=== PATIENT | female | born 1985 | race Caucasian/White ===

== ENCOUNTER 2019-02-22 01:45 | Inpatient (IN) | payer BC ==
[2019-02-22] MEDS ORDERED: Misoprostol 200 MCG Tab PO PRN (01:49)
[2019-02-22] MEDS ORDERED: Methylergonovine 0.2 MG/1 ML Amp IM PRN (01:49)
[2019-02-22] MEDS ORDERED: Tranexamic Acid 1,000 MG in Sodium Chloride 0.9% 100 ML IV PRN (01:49)
[2019-02-22] MEDS ORDERED: Lidocaine 1% 50 ML MDV INJECT PRN (01:49)
[2019-02-22] MEDS ORDERED: Sodium Chloride 0.9% 10 ML Syringe FLUSH PRN (01:49)
[2019-02-22] MEDS ORDERED: Sodium Chloride 0.9% 2.5 ML Syringe FLUSH PRN (01:49)
[2019-02-22] MEDS ORDERED: Water For Irrigation,Sterile 1,000 ML Container IRR PRN (01:49)
[2019-02-22] MEDS ORDERED: Misoprostol 25 MCG (1/4 of 100 MCG) Tab VAG PRN (01:49)
[2019-02-22] MEDS ORDERED: Carboprost Tromethamine 250 MCG/1 ML Amp IM PRN (01:49)
[2019-02-22] MEDS ORDERED: Nalbuphine 10 MG/1 ML Vial IVPUSH PRN (01:49)
[2019-02-22] MEDS ORDERED: Terbutaline 1 MG/ML SDV SUBCUT PRN (01:49)
[2019-02-22] MEDS ORDERED: Butorphanol 1 MG/ML SDV IVPUSH PRN (01:49)
[2019-02-22] MEDS ORDERED: Sodium Chloride 0.9% 10 ML SDV IV PRN (01:49)
[2019-02-22] MEDS ORDERED: Misoprostol 25 MCG (1/4 of 100 MCG) Tab PO ONE (01:59)
[2019-02-22] MEDS ORDERED: Oxytocin/0.9 % Sodium Chloride 30 UNIT/500 ML BAG IV SCH ×2 (02:00)
[2019-02-22] MEDS: Misoprostol 25 MCG (1/4 of 100 MCG) Tab PO SCH ×4 (07:47→16:12)
[2019-02-22] MEDS: Misoprostol 25 MCG (1/4 of 100 MCG) Tab VAG PRN ×3 (07:49→16:16)
--- NOTE | 2019-02-22 11:37 | PCM.LDHP ---
L&D History of Present Illness - General Date of Service: 02/22/19 Admit Problem/Dx: Patient Status Order with Admit Dx/Problem 02/22/19 01:49 Patient Status [ADT] Routine Admission Diagnosis/Problem Admission Diagnosis/Problem 02/22/19 11:28 33yo EDC 02/15/2019 41 0/7wks IOL for post dates, O+, RI, GBS neg. Source of Information: Patient History Limitations: Reports: No Limitations - History of Present Illness Improves with: Reports: None Worsens with: Reports: None Associated Symptoms: Reports: N - Related Data Allergies/Adverse Reactions: Allergies Allergy/AdvReac Type Severity Reaction Status Date / Time No Known Allergies Allergy Verified 05/15/15 21:05 Past Medical History HEENT History: Reports: None Cardiovascular History: Reports: None Other Cardiovascular History: "premature vascular contractions" Respiratory History: Reports: None Gastrointestinal History: Reports: GERD Genitourinary History: Reports: None 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: Musculoskeletal History: Reports: None Neurological History: Reports: None Psychiatric History: Reports: Anxiety Endocrine/Metabolic History: Reports: None Hematologic History: Reports: None Immunologic History: Reports: None Oncologic (Cancer) History: Reports: Malignant Melanoma Other Oncologic History: melanoma Dermatologic History: Reports: Melanoma - Infectious Disease History Infectious Disease History: Reports: Human Papilloma Virus (HPV) - Past Surgical History Head Surgeries/Procedures: Reports: None Other Respiratory Surgeries/Procedures: lung biospy Female Surgical History: Reports: None Other Endocrine Surgeries/Procedures: lymphoidectomy Social & Family History - Family History Family Medical History: Noncontributory - Tobacco Use Smoking Status *Q: Former Smoker Used Tobacco, but Quit: Yes Month/Year Tobacco Last Used: 05/2018 Tobacco Use Comment: Pt quit smoking when she found out she was Second Hand Smoke Exposure: No - Caffeine Use Caffeine Use: Reports: Coffee - Recreational Drug Use Recreational Drug Use: No H&P Review of Systems - Review of Systems: Review Of Systems: See Below General: Reports: No Symptoms HEENT: Reports: No Symptoms Pulmonary: Reports: No Symptoms Cardiovascular: Reports: No Symptoms Gastrointestinal: Reports: No Symptoms Genitourinary: Reports: No Symptoms Musculoskeletal: Reports: No Symptoms Skin: Reports: No Symptoms Psychiatric: Reports: No Symptoms Neurological: Reports: No Symptoms Hematologic/Lymphatic: Reports: No Symptoms Immunologic: Reports: No Symptoms L&D Exam - Exam Exam: See Below - Vital Signs Weight: 74.843 kg - OB Specific Contraction Intensity: Mild Movement: Active Heart Tones: Present Heart Tones per Min: 130 Heart Rate (FHR) Variability: Moderate (6-25 bmp) Presentation: Vertex - Rodriguez Score Rodriguez Score Cervix Position: Posterior Rodriguez Score Consistency: Medium Rodriguez Score Effacement: 31-50% Rodriguez Score Dilation: Closed Rodriguez Score Infant's Station: -2 Rodriguez Score Total: 3 - Exam General: Alert, Oriented, Cooperative HEENT: Hearing Intact Lungs: Clear to Auscultation, Normal Respiratory Effort. No: Decreased Breath Sounds Cardiovascular: Regular Rate, Regular Rhythm, Normal S1, Normal S2. No: Bradycardia, Tachycardia GI/Abdominal Exam: Soft, Non-Tender Rectal Exam: Deferred Genitourinary: Deferred Back Exam: Normal Inspection, Full Range of Motion Extremities: Normal Inspection, Normal Range of Motion, Non-Tender, No Pedal Edema, Normal Capillary Refill Skin: Warm, Dry, Intact Neurological: Cranial Nerves Intact, Reflexes Equal Bilateral, Strength Equal Bilateral, Normal Speech, Normal Tone Psychiatric: Alert, Normal Affect, Normal Mood - Patient Data Lab Results Last 24 hrs: Laboratory Results - last 24 hr 02/22/19 02/22/19 Range/Units 02:20 02:20 WBC 8.11 (4.0-11.0) K/uL RBC 4.59 (4.30-5.90) M/uL Hgb 13.5 (12.0-16.0) g/dL Hct 39.0 (36.0-46.0) % MCV 85.0 (80.0-98.0) fL MCH 29.4 (27.0-32.0) pg MCHC 34.6 (31.0-37.0) g/dL RDW Std Deviation 40.3 (28.0-62.0) fl RDW Coeff of Luz 13 (11.0-15.0) % Plt Count 184 (150-400) K/uL MPV 10.40 (7.40-12.00) fL Nucleated RBC % 0.0 /100WBC Nucleated RBCs # 0 K/uL Blood Type O POSITIVE Antibody Screen NEGATIVE Result Diagrams: 02/22/19 02:20 - Problem List (1) Supervision of normal IUP (intrauterine ) in primigravida SNOMED Code(s): 43038989, 648846897, 764614480, 173879072 ICD Code: Z34.00 - ENCNTR FOR SUPRVSN OF NORMAL FIRST , UNSP TRIMESTER Status: Acute Priority: High Current Visit: Yes Qualifiers: Trimester: third trimester Qualified Code(s): Z34.03 - Encounter for supervision of normal first , third trimester (2) Post-dates , delivered, current hospitalization SNOMED Code(s): 532274323, 600774481 ICD Code: O48.0 - POST-TERM Status: Acute Priority: High Current Visit: Yes Problem List Initiated/Reviewed/Updated: Yes Orders Last 24hrs: Active Orders 24 hr Category Date Time Status Patient Status [ADT] Routine ADT 02/22/19 01:49 Active Bedrest Bathroom Privileges [RC] ASDIRECTED Care 02/22/19 01:49 Active Communication Order [RC] ASDIRECTED Care 02/22/19 01:49 Active Communication Order [RC] ASDIRECTED Care 02/22/19 01:49 Active Communication Order [RC] ASDIRECTED Care 02/22/19 01:49 Active May Shower [RC] ASDIRECTED Care 02/22/19 01:49 Active Notify Provider [RC] PRN Care 02/22/19 01:49 Active Notify Provider [RC] PRN Care 02/22/19 01:49 Active Notify Provider [RC] PRN Care 02/22/19 01:49 Active Notify Provider [RC] STAT Care 02/22/19 01:49 Active Oxygen Therapy [RC] ASDIRECTED Care 02/22/19 01:49 Active Up ad Leisa [RC] ASDIRECTED Care 02/22/19 01:49 Active Vital Signs [RC] PER UNIT ROUTINE Care 02/22/19 01:49 Active Vital Signs [RC] PER UNIT ROUTINE Care 02/22/19 01:49 Active Regular Diet [DIET] Diet 02/22/19 Breakfast Active Butorphanol [Stadol] Med 02/22/19 01:49 Active 1 mg IVPUSH Q1H PRN Carboprost Tromethamine [Hemabate DS] Med 02/22/19 01:49 Active 250 mcg IM ASDIRECTED PRN Lactated Ringers [Ringers, Lactated] 1,000 ml Med 02/22/19 02:00 Active IV ASDIRECTED Lidocaine 1% [Xylocaine 1%] Med 02/22/19 01:49 Active 50 ml INJECT ONETIME PRN Methylergonovine [Methergine] Med 02/22/19 01:49 Active 0.2 mg IM ASDIRECTED PRN Nalbuphine [Nubain] Med 02/22/19 01:49 Active 10 mg IVPUSH Q1H PRN Oxytocin/0.9 % Sodium Chloride [Oxytocin 30 Unit/500 ML Med 02/22/19 02:00 Active -NS] 30 unit in 500 ml IV TITRATE Oxytocin/0.9 % Sodium Chloride [Oxytocin 30 Unit/500 ML Med 02/22/19 02:00 Active -NS] 30 unit in 500 ml IV TITRATE Sodium Chloride 0.9% [Normal Saline] Med 02/22/19 01:49 Active 10 ml IV ASDIRECTED PRN Sodium Chloride 0.9% [Saline Flush] Med 02/22/19 01:49 Active 10 ml FLUSH ASDIRECTED PRN Sodium Chloride 0.9% [Saline Flush] Med 02/22/19 01:49 Active 2.5 ml FLUSH ASDIRECTED PRN Terbutaline [Brethine] Med 02/22/19 01:49 Active 0.25 mg SUBCUT ASDIRECTED PRN Tranexamic Acid [Cyklokapron] 1,000 mg Med 02/22/19 01:49 Active Sodium Chloride 0.9% [Normal Saline] 100 ml IV ONETIME Water For Irrigation,Sterile [Sterile Water for Med 02/22/19 01:49 Active Irrigation] 1,000 ml IRR ASDIRECTED PRN miSOPROStol [Cytotec] Med 02/22/19 01:49 Active 200 mcg PO ONETIME PRN miSOPROStol [Cytotec] Med 02/22/19 02:00 Active 25 mcg PO Q4H miSOPROStol [Cytotec] Med 02/22/19 01:49 Active 25 mcg VAG ONETIME PRN miSOPROStol [Cytotec] Med 02/22/19 01:49 Active 25 mcg VAG Q4H PRN Scalp Electrode [WOMSER] Per Unit Routine Oth 02/22/19 01:49 Ordered Medication Administration Instruction [OM.PC] Q3H Oth 02/22/19 02:00 Ordered Peripheral IV Insertion Adult [OM.PC] Routine Oth 02/22/19 01:49 Ordered Resuscitation Status Routine Resus Stat 02/22/19 01:49 Ordered Medication Orders Butorphanol Tartrate (Stadol) 1 mg IVPUSH Q1H PRN PRN Reason: Pain Carboprost Tromethamine (Hemabate Ds) 250 mcg IM ASDIRECTED PRN PRN Reason: Post Hemorrhage Lactated Ringer's (Ringers, Lactated) 1,000 mls @ 150 mls/hr IV ASDIRECTED RENAE Oxytocin/Sodium Chloride (Oxytocin 30 Unit/500 Ml-Ns) 30 unit in 500 mls @ 500 mls/hr IV TITRATE RENAE Oxytocin/Sodium Chloride (Oxytocin 30 Unit/500 Ml-Ns) 30 unit in 500 mls @ 2 mls/hr IV TITRATE RENAE; Protocol Tranexamic Acid 1,000 mg/ (Sodium Chloride) 110 mls @ 660 mls/hr IV ONETIME PRN PRN Reason: Bleeding Lidocaine HCl (Xylocaine 1%) 50 ml INJECT ONETIME PRN PRN Reason: Laceration repair Methylergonovine Maleate (Methergine) 0.2 mg IM ASDIRECTED PRN PRN Reason: Post Hemorrhage Misoprostol (Cytotec) 200 mcg PO ONETIME PRN PRN Reason: Post Hemorrhage Misoprostol (Cytotec) 25 mcg VAG ONETIME PRN PRN Reason: Cervical Ripening Last Admin: 02/22/19 02:41 Dose: 25 mcg Misoprostol (Cytotec) 25 mcg VAG Q4H PRN PRN Reason: Cervical Ripening Last Admin: 02/22/19 07:49 Dose: 25 mcg Misoprostol (Cytotec) 25 mcg PO Q4H RENAE Last Admin: 02/22/19 07:48 Dose: 25 mcg Admin: 02/22/19 07:47 Dose: Not Given Nalbuphine HCl (Nubain) 10 mg IVPUSH Q1H PRN PRN Reason: Pain (severe 7-10) Sodium Chloride (Saline Flush) 10 ml FLUSH ASDIRECTED PRN PRN Reason: Keep Vein Open Last Admin: 02/22/19 02:20 Dose: 10 ml Sodium Chloride (Saline Flush) 2.5 ml FLUSH ASDIRECTED PRN PRN Reason: Keep Vein Open Sodium Chloride (Normal Saline) 10 ml IV ASDIRECTED PRN PRN Reason: IV Use Sterile Water (Sterile Water For Irrigation) 1,000 ml IRR ASDIRECTED PRN PRN Reason: delivery Terbutaline Sulfate (Brethine) 0.25 mg SUBCUT ASDIRECTED PRN PRN Reason: Tacysystole Assessment/Plan Comment:: IOL A: 33yo EDC 02/15/2019 41 0/7wks IOL for post dates, O+, RI, GBS neg. P: Admit, cytotec, pain meds prn, Anticipate , Dr Nugent updated on pt status
[2019-02-22] MEDS ORDERED: Dinoprostone 10 MG Insert VAG ONE (20:02)
[2019-02-22] MEDS: Lactated Ringers 1,000 ML IV SCH (21:00)
[2019-02-23] MEDS ORDERED: fentaNYL 100 MCG/2 ML SDV ONE ×2 (00:25→09:36)
[2019-02-23] MEDS ORDERED: Ropivacaine HCl/PF 100 ML ONE (00:26)
[2019-02-23] MEDS: Lactated Ringers 1,000 ML IV SCH ×3 (00:39→02:47)
--- NOTE | 2019-02-23 00:58 | PCM.PREANE ---
Preanesthetic Assessment - Anesthesia/Transfusion/Family Hx Anesthesia History: Prior Anesthesia Without Reaction Family History of Anesthesia Reaction: No Transfusion History: No Prior Transfusion(s) Intubation History: Unknown - Review of Systems General: No Symptoms Pulmonary: No Symptoms Cardiovascular: No Symptoms Gastrointestinal: No Symptoms Neurological: No Symptoms Other: Reports: Anxiety (and pain related to labor contractions) - Physical Assessment NPO Status Date: 02/23/19 NPO Status Time: 00:25 (sips/chips) Blood Pressure: 144/96 Height: 5 ft 6 in Weight: 165 lb ASA Class: 2 Mental Status: Alert & Oriented x3 Airway Class: Mallampati = 2 Dentition: Reports: Normal Dentition Thyro-Mental Finger Breadths: 3 Mouth Opening Finger Breadths: 3 ROM/Head Extension: Full Lungs: Clear to Auscultation, Normal Respiratory Effort Cardiovascular: Regular Rate, Regular Rhythm - Lab Values: Laboratory Last Values WBC 8.11 K/uL (4.0-11.0) 02/22/19 02:20 RBC 4.59 M/uL (4.30-5.90) 02/22/19 02:20 Hgb 13.5 g/dL (12.0-16.0) 02/22/19 02:20 Hct 39.0 % (36.0-46.0) 02/22/19 02:20 MCV 85.0 fL (80.0-98.0) 02/22/19 02:20 MCH 29.4 pg (27.0-32.0) 02/22/19 02:20 MCHC 34.6 g/dL (31.0-37.0) 02/22/19 02:20 RDW Std Deviation 40.3 fl (28.0-62.0) 02/22/19 02:20 RDW Coeff of Luz 13 % (11.0-15.0) 02/22/19 02:20 Plt Count 184 K/uL (150-400) 02/22/19 02:20 MPV 10.40 fL (7.40-12.00) 02/22/19 02:20 Nucleated RBC % 0.0 /100WBC 02/22/19 02:20 Nucleated RBCs # 0 K/uL 02/22/19 02:20 Blood Type O POSITIVE 02/22/19 02:20 Antibody Screen NEGATIVE 02/22/19 02:20 - Allergies Allergies/Adverse Reactions: Allergies Allergy/AdvReac Type Severity Reaction Status Date / Time No Known Allergies Allergy Verified 05/15/15 21:05 - Blood Blood Available: No Product(s) Available: None - Anesthesia Plan Free Text/Narrative:: Labor Epidural - Acknowledgements Anesthesia Type Planned: Epidural Pt an Appropriate Candidate for the Planned Anesthesia: Yes Alternatives and Risks of Anesthesia Discussed w Pt/Guardian: Yes Pt/Guardian Understands and Agrees with Anesthesia Plan: Yes PreAnesthesia Questionnaire HEENT History: Reports: None Cardiovascular History: Reports: None Other Cardiovascular History: "premature vascular contractions" Respiratory History: Reports: None Gastrointestinal History: Reports: GERD Genitourinary History: Reports: None 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: Musculoskeletal History: Reports: None Neurological History: Reports: None Psychiatric History: Reports: Anxiety Endocrine/Metabolic History: Reports: None Hematologic History: Reports: None Immunologic History: Reports: None Oncologic (Cancer) History: Reports: Malignant Melanoma Other Oncologic History: melanoma Dermatologic History: Reports: Melanoma - Infectious Disease History Infectious Disease History: Reports: Human Papilloma Virus (HPV) - Past Surgical History Head Surgeries/Procedures: Reports: None Other Respiratory Surgeries/Procedures: lung biospy Female Surgical History: Reports: None Other Endocrine Surgeries/Procedures: lymphoidectomy - SUBSTANCE USE Smoking Status *Q: Former Smoker Second Hand Smoke Exposure: No Recreational Drug Use History: No - CURRENT (IN HOUSE) MEDS Current Meds: Current Medications Butorphanol Tartrate (Stadol) 1 mg IVPUSH Q1H PRN PRN Reason: Pain Carboprost Tromethamine (Hemabate Ds) 250 mcg IM ASDIRECTED PRN PRN Reason: Post Hemorrhage Lactated Ringer's (Ringers, Lactated) 1,000 mls @ 150 mls/hr IV ASDIRECTED RENAE Last Admin: 02/23/19 00:39 Dose: 999 mls/hr Oxytocin/Sodium Chloride (Oxytocin 30 Unit/500 Ml-Ns) 30 unit in 500 mls @ 500 mls/hr IV TITRATE RENAE Oxytocin/Sodium Chloride (Oxytocin 30 Unit/500 Ml-Ns) 30 unit in 500 mls @ 2 mls/hr IV TITRATE RENAE; Protocol Last Admin: 02/22/19 21:00 Dose: 2 munits/min, 2 mls/hr Tranexamic Acid 1,000 mg/ (Sodium Chloride) 110 mls @ 660 mls/hr IV ONETIME PRN PRN Reason: Bleeding Lidocaine HCl (Xylocaine 1%) 50 ml INJECT ONETIME PRN PRN Reason: Laceration repair Methylergonovine Maleate (Methergine) 0.2 mg IM ASDIRECTED PRN PRN Reason: Post Hemorrhage Misoprostol (Cytotec) 200 mcg PO ONETIME PRN PRN Reason: Post Hemorrhage Misoprostol (Cytotec) 25 mcg VAG ONETIME PRN PRN Reason: Cervical Ripening Last Admin: 02/22/19 02:41 Dose: 25 mcg Misoprostol (Cytotec) 25 mcg VAG Q4H PRN PRN Reason: Cervical Ripening Last Admin: 02/22/19 16:16 Dose: 25 mcg Misoprostol (Cytotec) 25 mcg PO Q4H RENAE Last Admin: 02/22/19 16:12 Dose: 25 mcg Nalbuphine HCl (Nubain) 10 mg IVPUSH Q1H PRN PRN Reason: Pain (severe 7-10) Last Admin: 02/22/19 22:43 Dose: 10 mg Sodium Chloride (Saline Flush) 10 ml FLUSH ASDIRECTED PRN PRN Reason: Keep Vein Open Last Admin: 02/22/19 02:20 Dose: 10 ml Sodium Chloride (Saline Flush) 2.5 ml FLUSH ASDIRECTED PRN PRN Reason: Keep Vein Open Sodium Chloride (Normal Saline) 10 ml IV ASDIRECTED PRN PRN Reason: IV Use Sterile Water (Sterile Water For Irrigation) 1,000 ml IRR ASDIRECTED PRN PRN Reason: delivery Terbutaline Sulfate (Brethine) 0.25 mg SUBCUT ASDIRECTED PRN PRN Reason: Tacysystole Discontinued Medications Dinoprostone (Cervidil) 10 mg VAG ONETIME ONE Stop: 02/22/19 20:03 Fentanyl (Sublimaze) Confirm Administered Dose 100 mcg .ROUTE .STK-MED ONE Stop: 02/23/19 00:26 Ropivacaine (Naropin 0.2%) Confirm Administered Dose 100 mls @ as directed .ROUTE .STK-MED ONE Stop: 02/23/19 00:27 Misoprostol (Cytotec) 25 mcg PO ONETIME ONE Stop: 02/22/19 02:00 Last Admin: 02/22/19 02:41 Dose: 25 mcg
[2019-02-23] MEDS ORDERED: Ondansetron 4 MG/2 ML SDV IVPUSH ONE (08:28)
[2019-02-23] MEDS ORDERED: Sodium Chloride 0.9% 10 ML Syringe FLUSH PRN (08:28)
[2019-02-23] MEDS ORDERED: Sodium Chloride 0.9% 2.5 ML Syringe FLUSH PRN (08:28)
[2019-02-23] MEDS ORDERED: Citric Acid/Sodium Citrate Solution 30 ML Cup PO ONE (08:28)
[2019-02-23] MEDS ORDERED: Sodium Chloride 0.9% 10 ML SDV IV PRN (08:28)
[2019-02-23] MEDS ORDERED: Oxytocin/0.9 % Sodium Chloride 30 UNIT/500 ML BAG IV SCH (08:30)
[2019-02-23] MEDS ORDERED: Lactated Ringers 1,000 ML IV SCH ×2 (08:30→10:45)
[2019-02-23] MEDS ORDERED: ceFAZolin 2 GM in Premix Bag 1 BAG IV ONE (08:31)
[2019-02-23] MEDS ORDERED: ceFAZolin/Dextrose,Iso-Osmotic 2 GM/50 ML Duplex Bag IV ONE (09:32)
[2019-02-23] MEDS ORDERED: Morphine PF 10 MG/10 ML SDV ONE (09:33)
[2019-02-23] MEDS ORDERED: Bupivacaine 0.5% 10 ML SDV ONE (09:37)
[2019-02-23] MEDS ORDERED: Octyl 2-Cyanoacrylate 1 Tube ONE (09:45)
[2019-02-23] MEDS ORDERED: Ondansetron 4 MG/2 ML SDV IVPUSH PRN (10:39)
[2019-02-23] MEDS ORDERED: Ibuprofen 800 MG Tab PO PRN (10:39)
[2019-02-23] MEDS ORDERED: diphenhydrAMINE 50 MG/ML SDV IVPUSH PRN (10:39)
[2019-02-23] MEDS ORDERED: Lanolin 100% Cream 7 GM Tube TOP PRN (10:39)
[2019-02-23] MEDS ORDERED: Acetaminophen/oxyCODONE 325-5 MG Tab PO PRN ×2 (10:39→11:19)
[2019-02-23] MEDS ORDERED: Bisacodyl 10 MG Supp RECTAL PRN (10:39)
--- NOTE | 2019-02-23 10:42 | PCM.OPNOTE ---
- General Post-Op/Procedure Note Date of Surgery/Procedure: 02/23/19 Operative Procedure(s): Primary C/section Pre Op Diagnosis: IUP 41 wks faliar to pregress. Post-Op Diagnosis: Same Anesthesia Technique: Epidural Primary Surgeon: Aries Nugent Wardrobe Specialty Worker: Niecy Mooney EBL in mLs: 600 Complications: None Condition: Good
[2019-02-23] MEDS ORDERED: Naloxone 0.4 MG/ML Syringe IVPUSH PRN (11:21)
[2019-02-23] MEDS ORDERED: Nalbuphine 10 MG/1 ML Vial IVPUSH PRN (11:21)
[2019-02-23] MEDS: Ketorolac 30 MG/ML SDV IVPUSH SCH ×2 (11:30→19:21)
--- NOTE | 2019-02-23 14:08 | PCM.POSTAN ---
POST ANESTHESIA ASSESSMENT - MENTAL STATUS Mental Status: Alert, Oriented - RESPIRATORY Respiratory Status: Respiratory Rate WNL, Airway Patent, O2 Saturation Stable - CARDIOVASCULAR CV Status: Pulse Rate WNL, Blood Pressure Stable - GASTROINTESTINAL GI Status: No Symptoms - PAIN Pain Score: 0 - POST OP HYDRATION Hydration Status: Adequate & Stable - OBSERVATIONS Free Text/Narrative:: Pt doing well with no complaints. In room baby. VSS.
--- NOTE | 2019-02-23 14:48 | PCM48HPAN ---
Post Anesthesia Note - EVALUATION WITHIN 48HRS OF ANESTHETIC Vital Signs in Normal Range: Yes Patient Participated in Evaluation: Yes Respiratory Function Stable: Yes Airway Patent: Yes Cardiovascular Function Stable: Yes Hydration Status Stable: Yes Pain Control Satisfactory: Yes Nausea and Vomiting Control Satisfactory: Yes Mental Status Recovered: Yes Resp Rate: 12 Blood Pressure: 144/96 - COMMENTS/OBSERVATIONS Free Text/Narrative:: Pt being transferred to room and states she's just a "little sore" but otherwise to doing well. No apparent anesthesia complications. VSS.
--- NOTE | 2019-02-23 16:42 | OR ---
SURGEON: Aries Nugent MD DATE OF PROCEDURE: PREOPERATIVE DIAGNOSES: Intrauterine at 41 weeks, failure to progress. POSTOPERATIVE DIAGNOSES: Intrauterine at 41 weeks, failure to progress. OPERATION PERFORMED: Primary low-transverse section. DYNAMICS AX TECHNICAL ARCHITECT: Niecy Mooney. ANESTHESIA: Epidural, Valeria Quinonez and Dr. Rahman. ESTIMATED BLOOD LOSS: 600 mL. COMPLICATIONS: None. FINDING: Male fetus. score reported to be 8 and 9. Weight is not available. The fetus was in an occiput posterior position. Normal uterus, tubes, and ovaries. INDICATION OF SURGERY: This patient is 33. She is 41 weeks. She is followed in our clinic primarily by our nurse rate engineer. She is admitted for elective induction. She was induced with Pitocin and Cytotec. She responded to that, and she dilated to 4 to 5 cm and in spite of adequate contraction with adequate time, the patient did not progress. It was felt to be that the patient is occiput posterior and asynclitic. A decision for primary low-transverse section is done based on the failure to progress issue. PROCEDURE IN DETAIL: The patient was brought to the OR, properly identified. After adequate level of epidural anesthesia with a Obando catheter in the bladder, the patient was prepped and draped in sterile fashion as usual. Time-out taken, and the patient was re-identified. Once we did that, low transverse Pfannenstiel skin incision was done. Ric's fascia and rectus fascia were opened in direction of the incision. The 2 recti muscles were and peritoneal cavity was entered. Bladder flap was raised in the usual manner pushing the bladder away from the lower uterine segment. Low transverse uterine incision was done and extended manually with the hand. Fetus was in an occiput posterior position, rotated to OA and delivered without any problem, cried immediately and reported to be 8 and 9. The weight is not available. The placenta delivered spontaneous, complete, and intact and then repair of the lower uterine segment was done with 2-0 Vicryl continuous interlocking in 2 layers. Reperitonealization done with 3- 0 Vicryl continuous. The peritoneal cavity evacuated completely from all blood and blood clot and closed with 3-0 Vicryl continuous. The rectus fascia was closed with #1 PDS continuous. Ric's fascia with 3-0 Vicryl continuous and the skin closed in a subcuticular fashion and Dermabond. Instrument and sponge counts were correct. The patient tolerated the procedure well, went to recovery room in stable general condition. DEBRA BARRIGA /[id number]
[2019-02-23] MEDS: Docusate Sodium 100 MG Cap PO SCH (20:34)
[2019-02-23] MEDS: Misoprostol 25 MCG (1/4 of 100 MCG) Tab PO SCH (21:18)
[2019-02-24] MEDS: Ketorolac 30 MG/ML SDV IVPUSH SCH ×3 (01:18→13:39)
--- NOTE | 2019-02-24 09:28 | PCM.PNPP ---
- General Info Date of Service: 02/24/19 Functional Status: Reports: Pain Controlled - Review of Systems General: Reports: No Symptoms HEENT: Reports: No Symptoms Pulmonary: Reports: No Symptoms Cardiovascular: Reports: No Symptoms Gastrointestinal: Reports: No Symptoms Genitourinary: Reports: No Symptoms Musculoskeletal: Reports: No Symptoms Skin: Reports: No Symptoms Neurological: Reports: No Symptoms Psychiatric: Reports: No Symptoms - General Info Date of Service: 02/24/19 - Patient Data Vital Signs - Most Recent: Last Vital Signs Temp 36.7 C 02/24/19 07:42 Pulse 71 02/24/19 09:00 Resp 16 02/24/19 09:00 BP 125/83 02/24/19 07:42 Pulse Ox 90 L 02/24/19 09:00 Weight - Most Recent: 74.843 kg I&O - Last 24 Hours: Intake & Output 02/23/19 02/24/19 02/24/19 22:59 06:59 14:59 Intake Total 2548 Output Total 675 1500 Balance -675 1048 Lab Results - Last 24 Hours: Laboratory Results - last 24 hr 02/24/19 Range/Units 04:36 Hgb 10.8 L (12.0-16.0) g/dL Hct 31.1 L (36.0-46.0) % Med Orders - Current: Current Medications Bisacodyl (Dulcolax) 10 mg RECTAL ONETIME PRN PRN Reason: Constipation Carboprost Tromethamine (Hemabate Ds) 250 mcg IM ASDIRECTED PRN PRN Reason: Post Hemorrhage Diphenhydramine HCl (Benadryl) 25 mg IVPUSH Q6H PRN PRN Reason: Itching or Nausea Docusate Sodium (Colace) 100 mg PO BID [facility] Last Admin: 02/23/19 20:34 Dose: 100 mg Emollient Ointment (Lansinoh Hpa) 0 gm TOP ASDIRECTED PRN PRN Reason: Sore Nipples Tranexamic Acid 1,000 mg/ (Sodium Chloride) 110 mls @ 660 mls/hr IV ONETIME PRN PRN Reason: Bleeding Lactated Ringer's (Ringers, Lactated) 1,000 mls @ 125 mls/hr IV ASDIRECTED [facility] Last Admin: 02/23/19 20:30 Dose: 125 mls/hr Ibuprofen (Motrin) 800 mg PO Q8H PRN PRN Reason: mild pain or fever Ketorolac Tromethamine (Toradol) 30 mg IVPUSH Q6H [facility] Stop: 02/24/19 13:31 Last Admin: 02/24/19 07:29 Dose: 30 mg Methylergonovine Maleate (Methergine) 0.2 mg IM ASDIRECTED PRN PRN Reason: Post Hemorrhage Misoprostol (Cytotec) 200 mcg PO ONETIME PRN PRN Reason: Post Hemorrhage Nalbuphine HCl (Nubain) 5 mg IVPUSH Q3H PRN PRN Reason: Pruritis Stop: 02/24/19 11:21 Naloxone HCl (Narcan) 0.1 mg IVPUSH ONETIME PRN PRN Reason: RR<6 with STIMULATION Stop: 02/24/19 11:21 Ondansetron HCl (Zofran) 4 mg IVPUSH Q4H PRN PRN Reason: Nausea/Vomiting Oxycodone/Acetaminophen (Percocet 325-5 Mg) 1 tab PO Q4H PRN PRN Reason: Pain (moderate 4-6) Oxycodone/Acetaminophen (Percocet 325-5 Mg) 2 tab PO Q4H PRN PRN Reason: Pain (moderate 4-6) Oxycodone/Acetaminophen (Percocet 325-5 Mg) 1 tab PO ONETIME PRN PRN Reason: Breakthrough Pain Stop: 02/24/19 11:19 Sodium Chloride (Saline Flush) 10 ml FLUSH ASDIRECTED PRN PRN Reason: Keep Vein Open Sodium Chloride (Saline Flush) 2.5 ml FLUSH ASDIRECTED PRN PRN Reason: Keep Vein Open Discontinued Medications Bupivacaine HCl (Sensorcaine-Mpf 0.5%) Confirm Administered Dose 20 ml .ROUTE .STK-MED ONE Stop: 02/23/19 09:38 Last Admin: 02/23/19 21:16 Dose: Not Given Butorphanol Tartrate (Stadol) 1 mg IVPUSH Q1H PRN PRN Reason: Pain Cefazolin Sodium/Dextrose (Ancef) Confirm Administered Dose 2 gm IV .STK-MED ONE Stop: 02/23/19 09:33 Citric Acid/Sodium Citrate (Bicitra Solution) 30 ml PO ONETIME ONE Stop: 02/23/19 08:29 Last Admin: 02/23/19 21:17 Dose: Not Given Dinoprostone (Cervidil) 10 mg VAG ONETIME ONE Stop: 02/22/19 20:03 Last Admin: 02/23/19 21:17 Dose: Not Given Fentanyl (Sublimaze) Confirm Administered Dose 100 mcg .ROUTE .STK-MED ONE Stop: 02/23/19 00:26 Last Admin: 02/23/19 21:16 Dose: Not Given Fentanyl (Sublimaze) Confirm Administered Dose 100 mcg .ROUTE .[facility]-MED ONE Stop: 02/23/19 09:37 Last Admin: 02/23/19 21:16 Dose: Not Given Lactated Ringer's (Ringers, Lactated) 1,000 mls @ 150 mls/hr IV ASDIRECTED [facility] Last Infusion: 02/23/19 05:58 Dose: Infused Oxytocin/Sodium Chloride (Oxytocin 30 Unit/500 Ml-Ns) 30 unit in 500 mls @ 500 mls/hr IV TITRATE RENAE Oxytocin/Sodium Chloride (Oxytocin 30 Unit/500 Ml-Ns) 30 unit in 500 mls @ 2 mls/hr IV TITRATE RENAE; Protocol Last Titration: 02/23/19 07:25 Dose: 6 munits/min, 6 mls/hr Ropivacaine (Naropin 0.2%) Confirm Administered Dose 100 mls @ as directed .ROUTE .[facility]-MED ONE Stop: 02/23/19 00:27 Last Admin: 02/23/19 21:15 Dose: Not Given Lactated Ringer's (Ringers, Lactated) 1,000 mls @ 500 mls/hr IV BOLUS RENAE Oxytocin/Sodium Chloride (Oxytocin 30 Unit/500 Ml-Ns) 30 unit in 500 mls @ 250 mls/hr IV TITRATE RENAE Cefazolin Sodium/Dextrose 2 gm (/ Premix) 50 mls @ 100 mls/hr IV ONETIME ONE Stop: 02/23/19 09:00 Last Admin: 02/23/19 21:15 Dose: Not Given Ibuprofen (Motrin) 800 mg PO Q8H PRN PRN Reason: mild pain or fever Ketorolac Tromethamine (Toradol) 30 mg IVPUSH Q6H [facility] Stop: 02/24/19 10:46 Last Admin: 02/23/19 19:21 Dose: 30 mg Lidocaine HCl (Xylocaine 1%) 50 ml INJECT ONETIME PRN PRN Reason: Laceration repair Misoprostol (Cytotec) 25 mcg VAG ONETIME PRN PRN Reason: Cervical Ripening Last Admin: 02/22/19 02:41 Dose: 25 mcg Misoprostol (Cytotec) 25 mcg VAG Q4H PRN PRN Reason: Cervical Ripening Last Admin: 02/22/19 16:16 Dose: 25 mcg Misoprostol (Cytotec) 25 mcg PO ONETIME ONE Stop: 02/22/19 02:00 Last Admin: 02/22/19 02:41 Dose: 25 mcg Misoprostol (Cytotec) 25 mcg PO Q4H [facility] Last Admin: 02/23/19 21:18 Dose: Not Given Morphine Sulfate (Duramorph Pf) Confirm Administered Dose 10 mg .ROUTE .STK-MED ONE Stop: 02/23/19 09:34 Nalbuphine HCl (Nubain) 10 mg IVPUSH Q1H PRN PRN Reason: Pain (severe 7-10) Last Admin: 02/22/19 22:43 Dose: 10 mg Octyl Cyanoacrylate (Dermabond Advance) Confirm Administered Dose 1 applic .ROUTE .STK-MED ONE Stop: 02/23/19 09:46 Last Admin: 02/23/19 21:16 Dose: Not Given Ondansetron HCl (Zofran) 4 mg IVPUSH ONETIME ONE Stop: 02/23/19 08:29 Last Admin: 02/23/19 08:48 Dose: 4 mg Sodium Chloride (Saline Flush) 10 ml FLUSH ASDIRECTED PRN PRN Reason: Keep Vein Open Last Admin: 02/22/19 02:20 Dose: 10 ml Sodium Chloride (Saline Flush) 2.5 ml FLUSH ASDIRECTED PRN PRN Reason: Keep Vein Open Sodium Chloride (Normal Saline) 10 ml IV ASDIRECTED PRN PRN Reason: IV Use Sodium Chloride (Normal Saline) 10 ml IV ASDIRECTED PRN PRN Reason: IV Use Sterile Water (Sterile Water For Irrigation) 1,000 ml IRR ASDIRECTED PRN PRN Reason: delivery Terbutaline Sulfate (Brethine) 0.25 mg SUBCUT ASDIRECTED PRN PRN Reason: Tacysystole - Infant Interaction Infant Disposition, : in Room with Family Infant Interaction: Holding Infant Feeding: Attempted ; Nursed Fair/Poor Support Person: Significant Other - Recovery Exam Fundal Tone: Firm Fundal Level: 1 Fingerbreadths Below Umbilicus Fundal Placement: Midline Lochia Amount: Small Lochia Color: Rubra/Red Perineum Description: Intact, Minimal Bruising/Swelling Episiotomy/Laceration: None Bladder Status: Indwelling Catheter in Place Urinary Elimination: Indwelling Catheter - Exam General: Alert, Oriented HEENT: Pupils Equal Neck: Supple Lungs: Clear to Auscultation, Normal Respiratory Effort Cardiovascular: Regular Rate, Regular Rhythm GI/Abdominal Exam: Normal Bowel Sounds, Soft, Non-Tender, No Organomegaly, No Distention, No Abnormal Bruit, No Mass, Pelvis Stable Extremities: Normal Inspection, Normal Range of Motion, Non-Tender, No Pedal Edema, Normal Capillary Refill Skin: Warm, Dry, Intact Wound/Incisions: Healing Well Neurological: No New Focal Deficit Psy/Mental Status: Alert, Normal Affect, Normal Mood - Problem List Review Problem List Initiated/Reviewed/Updated: Yes - My Orders Last 24 Hours: My Active Orders 02/23/19 08:28 Sodium Chloride 0.9% [Saline Flush] 10 ml FLUSH ASDIRECTED PRN Sodium Chloride 0.9% [Saline Flush] 2.5 ml FLUSH ASDIRECTED PRN 02/23/19 08:29 Peripheral IV Insertion Adult [OM.PC] Routine Schedule Procedure [COMM] Per Unit Routine 02/23/19 10:39 Patient Status [ADT] Routine Ambulate [RC] PER UNIT ROUTINE Antiembolic Devices [RC] PER UNIT ROUTINE Communication Order [RC] PER UNIT ROUTINE Communication Order [RC] PER UNIT ROUTINE Communication Order [RC] Per Unit Routine May Shower [RC] ASDIRECTED RT Incentive Spirometry [RC] Q2HWA Acetaminophen/oxyCODONE [Percocet 325-5 MG] 1 tab PO Q4H PRN Acetaminophen/oxyCODONE [Percocet 325-5 MG] 2 tab PO Q4H PRN Bisacodyl [Dulcolax] 10 mg RECTAL ONETIME PRN Lanolin [Lansinoh HPA] See Dose Instructions TOP ASDIRECTED PRN Ondansetron [Zofran] 4 mg IVPUSH Q4H PRN diphenhydrAMINE [Benadryl] 25 mg IVPUSH Q6H PRN Assess Lochia [WOMSER] Per Unit Routine Assess Uterine Involution [WOMSER] Per Unit Routine Breast Pump [WOMSER] Per Unit Routine Peripheral IV Discontinue [OM.PC] Routine Sequential Compression Device [OM.PC] Per Unit Routine 02/23/19 10:45 Lactated Ringers [Ringers, Lactated] 1,000 ml IV ASDIRECTED 02/23/19 11:00 Notify Provider Vital Signs [RC] PRN 02/23/19 21:00 Docusate Sodium [Colace] 100 mg PO BID 02/23/19 Dinner Regular Diet [DIET] 02/24/19 01:30 Ketorolac [Toradol] 30 mg IVPUSH Q6H 02/24/19 21:00 Ibuprofen [Motrin] 800 mg PO Q8H PRN - Assessment Assessment:: S/P C/Section post op day 1. doing well. regular care. - Plan Plan:: IOL A: 33yo EDC 02/15/2019 41 0/7wks IOL for post dates, O+, RI, GBS neg. P: Admit, cytotec, pain meds prn, Anticipate , Dr Nugent updated on pt status
[2019-02-24] MEDS: Docusate Sodium 100 MG Cap PO SCH ×2 (11:14→21:52)
[2019-02-24] MEDS: Acetaminophen/oxyCODONE 325-5 MG Tab PO PRN ×2 (17:55→21:53)
[2019-02-24] MEDS ORDERED: Ibuprofen 800 MG Tab PO PRN (21:00)
[2019-02-25] MEDS: Acetaminophen/oxyCODONE 325-5 MG Tab PO PRN ×3 (02:02→10:27)
[2019-02-25 09:01] VITALS: BP 141/89
[2019-02-25] MEDS: Docusate Sodium 100 MG Cap PO SCH (09:12)
--- NOTE | 2019-02-25 10:58 | PCM.DCSUM1 ---
Discharge Summary - Hospital Course Diagnosis: Stroke: No - Discharge Data Discharge Date: 02/25/19 Discharge Disposition: Home, Self-Care 01 Condition: Good - Patient Summary/Data Operative Procedure(s) Performed: Primary C/section - Patient Instructions Diet: Usual Diet as Tolerated Activity: As Tolerated Driving: Do Not Drive Showering/Bathing: May Shower Wound/Incision Care: Keep Operative Site/Wound Site Clean and Dry - Discharge Plan Referrals: [facility] [Outside] Niecy Mooney CNM [Mid-] - (1 week- 03/03/19 @ 10:00am w/ Niecy Mooney 6 week- 04/07/19 @ 10:45am w/ Niecy Mooney) - Discharge Summary/Plan Comment DC Time >30 min.: Yes - General Info Date of Service: 02/25/19 Functional Status: Reports: Pain Controlled - Review of Systems General: Reports: No Symptoms HEENT: Reports: No Symptoms Pulmonary: Reports: No Symptoms Cardiovascular: Reports: No Symptoms Gastrointestinal: Reports: No Symptoms Genitourinary: Reports: No Symptoms Musculoskeletal: Reports: No Symptoms Skin: Reports: No Symptoms Neurological: Reports: No Symptoms Psychiatric: Reports: No Symptoms - Patient Data Vitals - Most Recent: Last Vital Signs Temp 36.0 C 02/25/19 08:59 Pulse 84 02/25/19 08:59 Resp 17 02/25/19 08:59 BP 141/89 H 02/25/19 08:59 Pulse Ox 94 L 02/25/19 08:59 Weight - Most Recent: 74.843 kg Med Orders - Current: Current Medications Bisacodyl (Dulcolax) 10 mg RECTAL ONETIME PRN PRN Reason: Constipation Carboprost Tromethamine (Hemabate Ds) 250 mcg IM ASDIRECTED PRN PRN Reason: Post Hemorrhage Diphenhydramine HCl (Benadryl) 25 mg IVPUSH Q6H PRN PRN Reason: Itching or Nausea Docusate Sodium (Colace) 100 mg PO BID [facility] Last Admin: 02/24/19 21:52 Dose: 100 mg Emollient Ointment (Lansinoh Hpa) 0 gm TOP ASDIRECTED PRN PRN Reason: Sore Nipples Tranexamic Acid 1,000 mg/ (Sodium Chloride) 110 mls @ 660 mls/hr IV ONETIME PRN PRN Reason: Bleeding Lactated Ringer's (Ringers, Lactated) 1,000 mls @ 125 mls/hr IV ASDIRECTED [facility] Last Admin: 02/23/19 20:30 Dose: 125 mls/hr Ibuprofen (Motrin) 800 mg PO Q8H PRN PRN Reason: mild pain or fever Methylergonovine Maleate (Methergine) 0.2 mg IM ASDIRECTED PRN PRN Reason: Post Hemorrhage Misoprostol (Cytotec) 200 mcg PO ONETIME PRN PRN Reason: Post Hemorrhage Ondansetron HCl (Zofran) 4 mg IVPUSH Q4H PRN PRN Reason: Nausea/Vomiting Oxycodone/Acetaminophen (Percocet 325-5 Mg) 1 tab PO Q4H PRN PRN Reason: Pain (moderate 4-6) Last Admin: 02/25/19 10:27 Dose: 1 tab Oxycodone/Acetaminophen (Percocet 325-5 Mg) 2 tab PO Q4H PRN PRN Reason: Pain (moderate 4-6) Sodium Chloride (Saline Flush) 10 ml FLUSH ASDIRECTED PRN PRN Reason: Keep Vein Open Sodium Chloride (Saline Flush) 2.5 ml FLUSH ASDIRECTED PRN PRN Reason: Keep Vein Open Discontinued Medications Bupivacaine HCl (Sensorcaine-Mpf 0.5%) Confirm Administered Dose 20 ml .ROUTE .STK-MED ONE Stop: 02/23/19 09:38 Last Admin: 02/23/19 21:16 Dose: Not Given Butorphanol Tartrate (Stadol) 1 mg IVPUSH Q1H PRN PRN Reason: Pain Cefazolin Sodium/Dextrose (Ancef) Confirm Administered Dose 2 gm IV .STK-MED ONE Stop: 02/23/19 09:33 Citric Acid/Sodium Citrate (Bicitra Solution) 30 ml PO ONETIME ONE Stop: 02/23/19 08:29 Last Admin: 02/23/19 21:17 Dose: Not Given Dinoprostone (Cervidil) 10 mg VAG ONETIME ONE Stop: 02/22/19 20:03 Last Admin: 02/23/19 21:17 Dose: Not Given Fentanyl (Sublimaze) Confirm Administered Dose 100 mcg .ROUTE .STK-MED ONE Stop: 02/23/19 00:26 Last Admin: 02/23/19 21:16 Dose: Not Given Fentanyl (Sublimaze) Confirm Administered Dose 100 mcg .ROUTE .[facility] ONE Stop: 02/23/19 09:37 Last Admin: 02/23/19 21:16 Dose: Not Given Lactated Ringer's (Ringers, Lactated) 1,000 mls @ 150 mls/hr IV ASDIRECTED [facility] Last Infusion: 02/23/19 05:58 Dose: Infused Oxytocin/Sodium Chloride (Oxytocin 30 Unit/500 Ml-Ns) 30 unit in 500 mls @ 500 mls/hr IV TITRATE RENAE Oxytocin/Sodium Chloride (Oxytocin 30 Unit/500 Ml-Ns) 30 unit in 500 mls @ 2 mls/hr IV TITRATE RENAE; Protocol Last Titration: 02/23/19 07:25 Dose: 6 munits/min, 6 mls/hr Ropivacaine (Naropin 0.2%) Confirm Administered Dose 100 mls @ as directed .ROUTE .[facility] ONE Stop: 02/23/19 00:27 Last Admin: 02/23/19 21:15 Dose: Not Given Lactated Ringer's (Ringers, Lactated) 1,000 mls @ 500 mls/hr IV BOLUS RENAE Oxytocin/Sodium Chloride (Oxytocin 30 Unit/500 Ml-Ns) 30 unit in 500 mls @ 250 mls/hr IV TITRATE RENAE Cefazolin Sodium/Dextrose 2 gm (/ Premix) 50 mls @ 100 mls/hr IV ONETIME ONE Stop: 02/23/19 09:00 Last Admin: 02/23/19 21:15 Dose: Not Given Ibuprofen (Motrin) 800 mg PO Q8H PRN PRN Reason: mild pain or fever Ketorolac Tromethamine (Toradol) 30 mg IVPUSH Q6H [facility] Stop: 02/24/19 10:46 Last Admin: 02/23/19 19:21 Dose: 30 mg Ketorolac Tromethamine (Toradol) 30 mg IVPUSH Q6H [facility] Stop: 02/24/19 13:31 Last Admin: 02/24/19 13:39 Dose: 30 mg Lidocaine HCl (Xylocaine 1%) 50 ml INJECT ONETIME PRN PRN Reason: Laceration repair Misoprostol (Cytotec) 25 mcg VAG ONETIME PRN PRN Reason: Cervical Ripening Last Admin: 02/22/19 02:41 Dose: 25 mcg Misoprostol (Cytotec) 25 mcg VAG Q4H PRN PRN Reason: Cervical Ripening Last Admin: 02/22/19 16:16 Dose: 25 mcg Misoprostol (Cytotec) 25 mcg PO ONETIME ONE Stop: 02/22/19 02:00 Last Admin: 02/22/19 02:41 Dose: 25 mcg Misoprostol (Cytotec) 25 mcg PO Q4H [facility] Last Admin: 02/23/19 21:18 Dose: Not Given Morphine Sulfate (Duramorph Pf) Confirm Administered Dose 10 mg .ROUTE .STK-MED ONE Stop: 02/23/19 09:34 Nalbuphine HCl (Nubain) 10 mg IVPUSH Q1H PRN PRN Reason: Pain (severe 7-10) Last Admin: 02/22/19 22:43 Dose: 10 mg Nalbuphine HCl (Nubain) 5 mg IVPUSH Q3H PRN PRN Reason: Pruritis Stop: 02/24/19 11:21 Naloxone HCl (Narcan) 0.1 mg IVPUSH ONETIME PRN PRN Reason: RR<6 with STIMULATION Stop: 02/24/19 11:21 Octyl Cyanoacrylate (Dermabond Advance) Confirm Administered Dose 1 applic .ROUTE .STK-MED ONE Stop: 02/23/19 09:46 Last Admin: 02/23/19 21:16 Dose: Not Given Ondansetron HCl (Zofran) 4 mg IVPUSH ONETIME ONE Stop: 02/23/19 08:29 Last Admin: 02/23/19 08:48 Dose: 4 mg Oxycodone/Acetaminophen (Percocet 325-5 Mg) 1 tab PO ONETIME PRN PRN Reason: Breakthrough Pain Stop: 02/24/19 11:19 Sodium Chloride (Saline Flush) 10 ml FLUSH ASDIRECTED PRN PRN Reason: Keep Vein Open Last Admin: 02/22/19 02:20 Dose: 10 ml Sodium Chloride (Saline Flush) 2.5 ml FLUSH ASDIRECTED PRN PRN Reason: Keep Vein Open Sodium Chloride (Normal Saline) 10 ml IV ASDIRECTED PRN PRN Reason: IV Use Sodium Chloride (Normal Saline) 10 ml IV ASDIRECTED PRN PRN Reason: IV Use Sterile Water (Sterile Water For Irrigation) 1,000 ml IRR ASDIRECTED PRN PRN Reason: delivery Terbutaline Sulfate (Brethine) 0.25 mg SUBCUT ASDIRECTED PRN PRN Reason: Tacysystole - Exam General: Reports: Alert, Oriented HEENT: Reports: Pupils Equal, Pupils Reactive, EOMI, Mucous Membr. Moist/[place] Neck: Reports: Supple Lungs: Reports: Clear to Auscultation, Normal Respiratory Effort Cardiovascular: Reports: Regular Rate, Regular Rhythm GI/Abdominal Exam: Normal Bowel Sounds, Soft, Non-Tender, No Organomegaly, No Distention, No Abnormal Bruit, No Mass, Pelvis Stable (Female) Exam: Normal External Exam, Normal Speculum Exam, Normal Bimanual Exam Rectal (Female) Exam: Normal Exam, Normal Rectal Tone Back Exam: Reports: Normal Inspection, Full Range of Motion Extremities: Normal Inspection, Normal Range of Motion, Non-Tender, No Pedal Edema, Normal Capillary Refill Skin: Reports: Warm, Dry, Intact Wound/Incisions: Reports: Healing Well Neurological: Reports: No New Focal Deficit Psy/Mental Status: Reports: Alert, Normal Affect, Normal Mood
== END 2019-02-25 14:30 | disposition home or self-care (01) | DRG 540 ==
LOC: MW.OBCHECK 01:45 → MW.OB 01:47 → OBSVTOIN 02-23 10:19 → MW.OB 02-23 13:00
PROVIDERS: ADMIT Obstetrics & Gynecology; ATTEND Obstetrics & Gynecology
PROC: 10D00Z1 Extraction of Products of Conception, Low, Open Approach (ICD-10-PCS; principal; 2019-02-23)
PROC: 3E033VJ Introduction of Other Hormone into Peripheral Vein, Percutaneous Approach (ICD-10-PCS; principal; 2019-02-23)
PROC: 3E0P7VZ Introduction of Hormone into Female Reproductive, Via Natural or Artificial Opening (ICD-10-PCS; principal; 2019-02-23)
PROC: 3E0R3BZ Introduction of Anesthetic Agent into Spinal Canal, Percutaneous Approach (ICD-10-PCS; 2019-02-23)
PROC: 00HU33Z Insertion of Infusion Device into Spinal Canal, Percutaneous Approach (ICD-10-PCS; 2019-02-23)
DX: O48.0 Post-term pregnancy (principal); O99.344 Other mental disorders complicating childbirth; F41.9 Anxiety disorder, unspecified; Z3A.41 41 weeks gestation of pregnancy; O62.0 Primary inadequate contractions; O99.62 Diseases of the digestive system complicating childbirth; K21.9 Gastro-esophageal reflux disease without esophagitis; Z37.0 Single live birth; O98.32 Other infections with a predominantly sexual mode of transmission complicating childbirth; A63.0 Anogenital (venereal) warts; Z87.891 Personal history of nicotine dependence; Z85.820 Personal history of malignant melanoma of skin
CPT/HCPCS: 36415; 51702; 59025; 85014; 85018; 85027; 86850; 86900; 86901; A9270-GY; J0690; J1885; J2270; J2300; J2405; J2590; J2795; J3010; J7120

== ENCOUNTER 2023-03-29 05:26 | Inpatient (IN) | payer BC ==
[2023-03-29] MEDS ORDERED: Sodium Chloride 0.9% 2.5 ML Syringe FLUSH PRN (05:34)
[2023-03-29] MEDS ORDERED: Sodium Chloride 0.9% 20 ML SDV IV PRN (05:34)
[2023-03-29] MEDS ORDERED: ceFAZolin 2 GM in Sodium Chloride 0.9% 50 ML IV ONE (05:34)
[2023-03-29] MEDS ORDERED: Sodium Chloride 0.9% 10 ML Syringe FLUSH PRN (05:34)
[2023-03-29] MEDS ORDERED: Citric Acid/Sodium Citrate Solution 30 ML Cup PO ONE (05:34)
[2023-03-29] MEDS ORDERED: Oxytocin/0.9 % Sodium Chloride 30 UNIT/500 ML BAG IV SCH ×2 (05:45→08:45)
[2023-03-29] MEDS ORDERED: Lactated Ringers 1,000 ML IV SCH ×2 (05:45→08:45)
[2023-03-29 06:06] LABS: HEMATOCRIT 37.9 % (36.0-46.0); HEMOGLOBIN 12.9 g/dL (12.0-16.0); MEAN CORPUSCULAR HEMOGLOBIN 29.1 pg (27.0-32.0); MEAN CORPUSCULAR VOLUME 85.6 fL (80.0-98.0); RED BLOOD CELL COUNT 4.43 M/uL (4.30-5.90); WHITE BLOOD CELL COUNT,WBC 8.15 K/uL (4.0-11.0)
[2023-03-29] MEDS ORDERED: Ketorolac 30 MG/ML SDV ONE (07:14)
[2023-03-29] MEDS ORDERED: Oxytocin 10 Units/1 ML SDV ONE ×2 (07:14→08:05)
[2023-03-29] MEDS ORDERED: Dexamethasone 4 MG/ML 5 ML MDV ONE (07:14)
[2023-03-29] MEDS ORDERED: Water For Injection, Sterile 20 ML ONE (07:14)
[2023-03-29] MEDS ORDERED: Ondansetron 4 MG/2 ML SDV ONE (07:14)
[2023-03-29] MEDS ORDERED: Ropivacaine 0.5% 5 MG/ML 30 ML SDV ONE (07:14)
[2023-03-29] MEDS ORDERED: ceFAZolin 1 GM Vial ONE (07:14)
[2023-03-29] MEDS ORDERED: fentaNYL 100 MCG/2 ML SDV ONE (07:19)
[2023-03-29] MEDS ORDERED: Morphine PF 10 MG/10 ML SDV ONE (07:19)
[2023-03-29] MEDS ORDERED: Propofol 200 MG/20 ML SDV ONE (08:24)
[2023-03-29] MEDS ORDERED: Ketorolac 30 MG/ML SDV IVPUSH SCH ×2 (08:30→13:15)
[2023-03-29] MEDS ORDERED: Tranexamic Acid 1,000 MG in Sodium Chloride 0.9% 100 ML IV PRN (08:35)
[2023-03-29] MEDS ORDERED: Ondansetron 4 MG/2 ML SDV IVPUSH PRN ×3 (08:35→09:05)
[2023-03-29] MEDS ORDERED: diphenhydrAMINE 50 MG/ML SDV IVPUSH PRN ×2 (08:35→09:05)
[2023-03-29] MEDS ORDERED: Lanolin 100% Cream 7 GM Tube TOP PRN (08:35)
[2023-03-29] MEDS ORDERED: Bisacodyl 10 MG Supp RECTAL PRN (08:35)
[2023-03-29] MEDS ORDERED: Misoprostol 200 MCG Tab RECTAL PRN (08:35)
[2023-03-29] MEDS ORDERED: Oxytocin 10 Units/1 ML SDV IM PRN (08:35)
[2023-03-29] MEDS ORDERED: Methylergonovine 0.2 MG/1 ML Amp IM PRN (08:35)
[2023-03-29] MEDS ORDERED: Acetaminophen/oxyCODONE 325-5 MG Tab PO PRN ×2 (08:35→09:05)
[2023-03-29 08:51] LABS: PH,UMBILICAL ARTERIAL 7.275 (7.18-7.38); PH,UMBILICAL VENOUS 7.346 (7.25-7.45)
[2023-03-29] MEDS ORDERED: Morphine 2 MG/ML SYRINGE IVPUSH PRN (09:05)
[2023-03-29] MEDS ORDERED: Metoclopramide 10 MG/2 ML SDV IVPUSH PRN (09:05)
[2023-03-29] MEDS ORDERED: fentaNYL 100 MCG/2 ML SDV IVPUSH PRN (09:05)
[2023-03-29] MEDS ORDERED: Naloxone 0.4 MG/ML SDV IVPUSH PRN (09:05)
[2023-03-29] MEDS ORDERED: droPERidol 5 MG/2 ML SDV IVPUSH PRN (09:05)
[2023-03-29] MEDS ORDERED: Albuterol 0.083% 2.5 MG/3 ML Neb Soln NEB PRN (09:05)
[2023-03-29] MEDS ORDERED: fentaNYL 50 MCG/ML SDV IVPUSH PRN (09:05)
[2023-03-29] MEDS ORDERED: ePHEDrine 50 MG/ML SDV IVPUSH PRN (09:05)
[2023-03-29] MEDS ORDERED: HYDROmorphone 1 MG/ML Syringe IVPUSH PRN (09:05)
[2023-03-29] MEDS: Acetaminophen 1,000 MG in Premix Bag 1 BAG IV PRN ×3 (10:20→22:59)
[2023-03-29] MEDS: Ketorolac 30 MG/ML SDV IVPUSH SCH ×2 (15:09→21:53)
[2023-03-29] MEDS: Docusate Sodium 100 MG Cap PO SCH (21:53)
[2023-03-30] MEDS: Ketorolac 30 MG/ML SDV IVPUSH SCH ×2 (04:00→10:04)
[2023-03-30] MEDS: Acetaminophen 1,000 MG in Premix Bag 1 BAG IV PRN (04:52)
[2023-03-30 06:24] LABS: HEMATOCRIT 30.8 % (36.0-46.0); HEMOGLOBIN 10.3 g/dL (12.0-16.0)
[2023-03-30] MEDS: buPROPion 150 MG Tab.ER PO SCH (07:42)
[2023-03-30] MEDS: Docusate Sodium 100 MG Cap PO SCH ×2 (07:42→21:22)
[2023-03-30] MEDS: Prenatal Multivitamin with Calcium/Folic Acid/Iron Tab PO SCH (07:42)
[2023-03-30] MEDS: Acetaminophen/oxyCODONE 325-5 MG Tab PO PRN ×2 (12:45→19:46)
[2023-03-30] MEDS: Ibuprofen 800 MG Tab PO PRN (16:05)
[2023-03-31] MEDS: Acetaminophen/oxyCODONE 325-5 MG Tab PO PRN ×3 (00:51→10:34)
[2023-03-31] MEDS: Ibuprofen 800 MG Tab PO PRN ×2 (03:16→12:26)
[2023-03-31 08:12] VITALS: BP 118/78; PULSE 69
[2023-03-31] MEDS: buPROPion 150 MG Tab.ER PO SCH (09:36)
[2023-03-31] MEDS: Prenatal Multivitamin with Calcium/Folic Acid/Iron Tab PO SCH (09:37)
[2023-03-31] MEDS: Docusate Sodium 100 MG Cap PO SCH (09:37)
== END 2023-03-31 12:40 | disposition home or self-care (01) | DRG 540 ==
LOC: MW.OB 05:26
PROVIDERS: ADMIT Obstetrics & Gynecology; ATTEND Obstetrics & Gynecology
PROC: 10D00Z1 Extraction of Products of Conception, Low, Open Approach (ICD-10-PCS; principal; 2023-03-29)
DX: O34.211 Maternal care for low transverse scar from previous cesarean delivery (principal); O99.62 Diseases of the digestive system complicating childbirth; K21.9 Gastro-esophageal reflux disease without esophagitis; O99.344 Other mental disorders complicating childbirth; F41.9 Anxiety disorder, unspecified; F32.A Depression, unspecified; Z37.0 Single live birth; Z3A.39 39 weeks gestation of pregnancy
CPT/HCPCS: 36415; 59025; 82803; 85014; 85018; 85027; 86592; 86850; 86900; 86901; A9270-GY; J0131; J0690; J1100; J1885; J2274; J2405; J2590; J2704; J2795; J3010; J3490; J7120